=== PATIENT | female | born 1970 | race Caucasian/White ===

== ENCOUNTER 2022-09-01 13:40 | Outpatient (REF) | payer MEDICARE, OTHER, SELFPAY ==
--- NOTE | ~2022-09-01 | XR_ITS ---
EXAMINATION: XR LUMBOSACRAL SPINE CLINICAL INFORMATION: Low back pain COMPARISON: Previous x-ray December 2010 TECHNIQUE: Three views of the lumbosacral spine. FINDINGS: There is mild curvature of the lumbar spine to the left. Bone alignment is otherwise normal. No fracture or dislocation. Degenerative disc disease at L5-S1. Lower lumbar spine facet arthritis. Compared to December 2010 exam spinal stimulator has been removed. XR/XR lumbar spine 2-3V IMPRESSION: Mild scoliosis. Degenerative changes.
== END 2022-09-01 13:41 | disposition home or self-care (01) ==
LOC: HO.XRAY 13:40
PROVIDERS: PCP Internal Medicine; Visit Provider Internal Medicine
DX: M54.50 Low back pain, unspecified (principal)
CPT/HCPCS: 72100

== ENCOUNTER 2024-01-16 12:46 | Outpatient (REF) | payer MEDICARE, OTHER, SELFPAY ==
[2024-01-16 15:01] LABS: Alanine Aminotransferase 43 U/L (0-31); Albumin Level 4.6 g/dL (3.5-5.0); Alkaline Phosphatase 95 U/L (39-117); Aspartate Amino Transferase 25 U/L (5-31); Bilirubin Direct < 0.2 mg/dL (0.0-0.5); Bilirubin Total 0.2 mg/dL (0.0-1.0); Total Protein 8.4 g/dL (6.5-8.0)
[2024-01-17 08:08] LABS: HBS Num1 654.75 mIU/mL (0-7.99); HBc Num1 0.07 S/CO (0.00-0.79); HBsAGNum1 0.45 S/CO (0.00-0.99); HIV AB/AG Nonreactive (Nonreactive); HIV Num 1 0.04 S/CO (0.00-0.99); Hepatitis B Core Antibody Nonreactive (Nonreactive); Hepatitis B Surface Antigen Negative (Negative); ~HepC Num1 0.09 S/CO (0.00-0.79); ~Hepatitis B Surface Antibody REACTIVE (Nonreactive); ~Hepatitis C Antibody Nonreactive (Nonreactive)
[2024-01-17 08:12] LABS: Hepatitis A Antibody IgG REACTIVE (Nonreactive); ~Hepatitis A Antibody IgG 5.24 S/CO (0.00-0.99)
[2024-01-17 16:14] LABS: RPR Rapid Plasma Reagin NON-REACTIVE (NON-REACTIVE)
[2024-01-19 03:03] LABS: TS Negative Control Passed; TS Panel A 1; TS Panel B 0; TS Positive Control Passed; TSpotTB Negative (Negative)
== END 2024-01-16 12:47 | disposition home or self-care (01) ==
LOC: HO.CHCLDS 12:46
PROVIDERS: Visit Provider Emergency Medicine
DX: F11.20 Opioid dependence, uncomplicated (principal); K21.9 Gastro-esophageal reflux disease without esophagitis; E78.2 Mixed hyperlipidemia; R03.0 Elevated blood-pressure reading, without diagnosis of hypertension; Z11.59 Encounter for screening for other viral diseases; R53.81 Other malaise
CPT/HCPCS: 36415; 80076; 86481; 86592; 86704; 86706; 86708; 86803; 87340; 87389

== ENCOUNTER 2024-05-28 11:50 | Outpatient (REF) | payer MEDICARE, MEDICAID, SELFPAY ==
--- OUTSIDE RECORDS SUMMARY | 2024-05-28 13:21 | XMS_ITS | Encounter Summary ---
Author Organization [employer] Address [address] [facility] [address] [place] [address] Care Team Providers Care Tea Blender Name Role Phone Jeremias Maria MD Primary Care Prov ider Encounter Details Date Type Department Care Team (Latest Contact Info) Description 08/18/2020 Abstract [facility] CONVERSIONS Dental, Provider, DDS Social History Tobacco Use Types Packs/Day Years Used Date Smoking Tobacco: Never Assessed Comments Unknown Sex and Gender Information Value Date Recorded Sex Assigned at Female 02/14/2022 10:24 AM EDT Legal Sex Female 10:24 AM EDT Gender Identity Female 02/14/2022 10:24 AM EDT Sexual Orientation Lesbian or Martino 09/28/2022 10 :58 AM EDT documented as of this encounter Plan of Treatment Upcoming Encounters Date Type Department Care Team (Late st Contact Info) Description 07/02/2024 1:00 PM EDT Clinical Support [facility] MEDICINE [address] [place] [address] Hayley Gamez, RN documented as of this encounter Visit Diagnoses Not on filedocumented in this encounter Care Teams Tea Blender Relationship Specialty Start Date End Date Jeremias Maria MD [address] [place] [address] PCP - General Internal Medicine 09/15/19 documented as of this encounter
--- OUTSIDE RECORDS SUMMARY | 2024-05-28 13:21 | XMS_ITS | Encounter Summary ---
Author Organization [employer] Address [address] [facility] 7t [place] [address] Care Team Providers Care Photographer Model Name Role Phone Jeremias Maria MD Primary Care Prov ider Reason for Visit * Reason Onset Date Comments Other 11/16/2022 Encounter Details Date Type Department Care Team ([facility] Contact Info) Description 11/16/2022 Telephone [facility] MED & PEDS [address] [place], [place] [phone] Jeremias Maria MD [address] [place] [address] Other Social History Tobacco Use Types Packs/Day Years Used Date Smoking Tobacco: Every Day Cigarettes Smokeless Tobacco: Current Alcohol Use Standard Drinks/Week Comments Yes 1 (1 standard drink = 0.6 oz pur e alcohol) Depression Answer Date Recorded Patient Health Questionnaire-9 Score 0 08/22/2022 Depression Answer Date Recorded Patient Health Questionnaire-2 Score 0 08/22/2022 Comments Unknown Sex and Gender Information Value Date Recorded Sex Assigned at Female 02/14/2022 10:24 AM EDT Legal Sex Female 10:24 AM EDT Gender Identity Female 02/14/2022 10:24 AM EDT Sexual Orientation Lesbian or Martino 09/28/2022 10 :58 AM EDT documented as of this encounter Miscellaneous Notes * Telephone Encounter - Luanne Goldstein RN - 11/17/2022 2:29 PM EDT T/ C to pt. For below message, message states , we are sorry , your call did not go through. Please call later. Not able to LVM. * Telephone Encounter - Shonna Griffin - 11/16/2022 9:20 AM EDT Tc from patient requesting for PCP to have the actual film of x-ray to give her the results in teleappt on 11/17/22. documented in this encounter Plan of Treatment Upcoming Encounters Date Type Department Care Team (Late st Contact Info) Description 07/02/2024 1:00 PM EDT Clinical Support [facility] MEDICINE [address] [place] [id number] Hayley Gamez RN documented as of this encounter Visit Diagnoses Not on filedocumented in this encounter Additional Health Concerns Assessment Noted Time PHQ-9 Depression Total Score: 0 08/23/19 2:19 PM EDT documented as of this encounter Care Teams Photographer Model Relationship Specialty Start Date End Date Jeremias Maria MD [address] [place] [id number] PCP - General Internal Medicine 09/15/19 documented as of this encounter
--- OUTSIDE RECORDS SUMMARY | 2024-05-28 13:21 | XMS_ITS | Encounter Summary ---
Author Organization [employer] Address [address] [facility] [address] [place] [address] Care Team Providers Care Recovery Coach Name Role Phone Jeremias Maria MD Primary Care Prov ider Encounter Details Date Type Department Care Team (Latest Contact Info) Description 05/07/2024 Travel Social History Tobacco Use Types Packs/Day Years Used Date Smoking Tobacco: Every Day Cigarettes Smokeless Tobacco: Current Alcohol Use Standard Drinks/Week Comments Yes 1 (1 standard drink = 0.6 oz pur e alcohol) Depression Answer Date Recorded Patient Health Questionnaire-9 Score 5 03/31/2023 Patient Health Questionnaire-9 Score 5 03/31/2023 Last PHQ-9: Questionnaire Data Not on file 1 06/01/2022 Housing Stability Answer Date Recorded What is your housing situation today? I have desisabella draper 01/31/[address] you li ve. Do you have problems with any of the following? None of the above 01/31/2023 Food Insecurity Answer Date Recorded Within the past 12 months, y ou worried that your food would run out before you got money to buy more: Never True 01/31/2023 Within the past 12 months,th e food you bought just didn't last and you didn't have enough money to get more: Never True Transportation Answer Date Recorded In the past 12 months, has l ack of transportation kept you from medical appts, meetings, work or from getting things needed for daily living? No 01/31/2023 Utilities Answer Date Recorded In the past 12 months, has t he electric, gas, oil or water company threatened to shut off services in your home? No 01/31/2023 Depression Answer Date Recorded Patient Health Questionnaire-2 Score 0 03/31/2023 Comments Unknown Sex and Gender Information Value [...] Description 07/02/2024 1:00 PM EDT Clinical Support [facility] MEDICINE [address] [place] [id number] Hayley Gamez RN documented as of this encounter Visit Diagnoses Not on filedocumented in this encounter Additional Health Concerns Assessment Noted Time PHQ-9 Depression Total Score: 5 03/31/20 23 12:04 PM EST documented as of this encounter Care Teams Recovery Coach Relationship Specialty Start Date End Date Jeremias Maria MD [address] [place] [id number] PCP - General Internal Medicine 09/15/19 documented as of this encounter
--- OUTSIDE RECORDS SUMMARY | 2024-05-28 13:21 | XMS_ITS | Encounter Summary ---
Author Organization [employer] Address [address] [facility] [address] [place] [address] Care Team Providers Care Nipping Machine Operator Name Role Phone Jeremias Maria MD Primary Care Prov ider Encounter Details Date Type Department Care Team ([facility] Contact Info) Description 10/10/2022 Abstract [facility] MED & PEDS [address] [place], [place] [phone] Jeremias Maria MD [address] [place] [address] Social History Tobacco Use Types Packs/Day Years [...] or Martino 09/28/2022 10 :58 AM EDT COVID-19 Exposure Response Date Recorded In the last 10 days, have yo u been in contact with someone who was confirmed or suspected to have Coronavirus/COVID-19? No / Unsure 10/07/2022 9:02 AM EDT documented as of this encounter Plan of Treatment Upcoming Encounters Date Type Department Care Team ([facility] Contact Info) Description 07/02/2024 1:00 PM EDT Clinical Support [facility] MEDIC[facility] [address] [place] [address] Hayley Gamez RN documented as of this encounter Procedures Procedure Name Priority Date/Time Associated Diagnosis Comments MAMMOGRAPHY Routine 09/08/2022 12:14 PM EDT documented in this encounter Results * Mammography (09/08/2022 12:14 PM EDT) Mammogram Bi-rads 1 Anatomical Region Laterality Modality Other Narrative 09/08/2022 12:14 PM EDT Recommended routine annual screening ( [facility] ) us Historical Provider HEALTH MAINTENANCE Final Result documented in this encounter Visit Diagnoses Not on filedocumented in this encounter Additional Health Concerns Assessment Noted Time PHQ-9 Depression Total Score: 0 08/23/19 23 2:19 PM EDT documented as of this encounter Care Teams Nipping Machine Operator Relationship Specialty Start Date End Date Jeremias Maria MD [address] [place] [id number] PCP - General Internal Medicine 09/15/19 documented as of this encounter
--- OUTSIDE RECORDS SUMMARY | 2024-05-28 13:21 | XMS_ITS | Encounter Summary ---
Author Organization [employer] Address [address] [facility] [address] [place] [address] Care Team Providers Care Equipment Driver Name Role Phone Jeremias Maria MD Primary Care Prov ider Encounter Details Date Type Department Care Team (Latest Contact Info) Description 08/17/2018 Abstract [facility] CONVERSIONS Dental, Provider, DDS Social History Tobacco [...] Upcoming Encounters Date Type Department Care Team ( st Contact Info) Description 07/02/2024 1:00 PM EDT Clinical Support [facility] MEDICINE [address] [place] [address] Hayley Gamez, RN documented as of this encounter Visit Diagnoses Not on filedocumented in this encounter Care Teams Equipment Driver Relationship Specialty Start Date End Date Jeremias Maria MD [address] [place] [address] PCP - General Internal Medicine 09/15/19 documented as of this encounter
--- OUTSIDE RECORDS SUMMARY | 2024-05-28 13:21 | XMS_ITS | Clinical Summary ---
Author Organization [employer] Address [address] [place] [address] Care Team Providers Care Test Center Manager Name Role Phone Jeremias Maria MD Primary Care Prov ider Allergies Active Allergy Reactions Criticality Noted Date Comments Penicillins High 2022 Medications * This document contains information received from the source organization and may not represent a complete record from that organization. tiZANidine (Zanaflex) 2 MG tabletIndicati ons:Muscle spasm TAKE ONE TABLET BY MOUTH TWICE DAILY 60 tablet 3 04/25/19 23 Active ibuprofen 800 MG tablet Take 1 tablet by mouth in the morning and 1 tablet at noon and 1 tablet in the evening. 06/24/19 22 Active lidocaine (Xylocaine) 5 % ointment Apply topically at bed time. 07/10/19 21 Active naloxone (Narcan) 4 mg/0.1 mL nasal spray Administer 0.1 mL into affected nostril(s). 10/07/19 20 Active nicotine (Nicoderm, Step 2) 14 MG/24HR patch Place 1 patch on the skin at bed time. 03/09/20 21 Active nicotine (Nicoderm, Step 1) 21 MG/24HR patch Place 1 patch on the skin at bed time. 03/09/20 21 Active nicotine (Nicoderm, Step 3) 7 MG/24HR patch Place 1 patch on the skin at bed time. 03/09/20 21 Active Blood Pressure Monitor kit 1 Units in the morning. 1 kit 08/23/19 23 Active hydrOXYzine HCl (Atarax) 25 MG tablet Take 1 tablet (25 mg) by mouth if needed in the morning, at noon, and at bedtime for anxiety. 90 tablet 3 03/15/20 23 Active SUMAtriptan (Imitrex) 50 MG tablet TAKE 1 TABLET BY MOUTH AT ONSET OF MIGRAINE. MAY REPEAT ONCE AFTER 2 HOURS IF NEEDED, DO NOT EXCEED FOUR TABLETS IN 24 HOURS 8 tablet 3 03/23/20 23 Active IBU 800 MG tablet TAKE ONE TABLET THREE TIMES DAILY WITH FOOD NEEDED FOR PAIN 90 tablet 11 08/22/19 24 Active topiramate (Topamax) 100 MG tablet Take 1 tablet (100 mg) by mouth 2 times daily. 120 tablet 11 01/12/20 24 Active pantoprazole (ProtoNix) 40 MG EC tablet TAKE 1 TABLET BY MOUTH AT BEDTIME 90 tablet 04/26/19 25 Active Buprenorphine HCl-Naloxone HCl (Suboxone) 8-2 MG SL filmIndication s:Opioid type dependence, continuous (CMS/HCC) Place 1 Film under the tongue 3 times daily. 84 Film 1 04/30/19 25 025 Active Buprenorphine HCl-Naloxone HCl (Suboxone) 8-2 MG SL filmIndication s:Opioid type dependence, continuous (CMS/HCC) Place 1 Film under the tongue 3 times daily. Do not start before February 08, 2024. 84 Film 2 02/08/20 24 025 Discontinued(Re order (will not trigger notification to Pharmacy)) Active Problems Problem Noted Date Diagnosed Date Opioid dependence, uncomplicated 05/07/2024 Mild episode of recurrent major depressive disor eugenio 03/31/2023 Assessment & Plan (03/31/2023 4:10 PM EST): PROGRESS NOTE: ID: Thi is a 53 y.o. White lesbian or sharp-identified cis-female (pronouns she/her/hers) with previous documented hx of Depression and Anxiety. Hx of MH services including OP Psychotherapy, who presents for Depression and anxiety sxs. 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 She also reported that she has been having side effect on her motors skills after a surgery that was done by mistake 3 years ago. Currently dropping staff when she pick them up, constantly in pain for no reason as she reported. Has upcoming appt with a neurologist with the hope that it can be identified what's happening to her. During IBH Consult Thi presenting with changes in sleep difficulty staying asleep , trouble concentrating, fatigue/loss of energy and excessive worry/anxiety, difficulty controlling worry, restless/keyed up/On edge, irritability, and sleep disturbance difficulty staying asleep ; for a period of 18+ mo, for all symptoms in the context of family issues with siblings, been the main caregiver of her elderly mother. Struggling with motors skills and this frustrate her and concerns her. PLAN: New/Additional Services needed Off-site services for , Behavioral Health Integration Plan External OP therapy referral , Patient Self Plan Patient to utilize skills provided in intervention , Patient to reach out to [facility] team as needed, and Comply with medication Anxiety 03/16/2023 Assessment & Plan (04/20/2023 3:00 PM EST): No suicidal/homicidal ideas, controlled with hydroxyzine as needed, follow up . Assessment & Plan (03/16/2023 10:12 AM EST): Denied suicide/homicide ideas, refers since recent life stressors, her anxiety has increased, wants to see a therapist, will place consult, started on hydroxyzine to be taken as needed, side effects discussed, follow up in 1 month Effects of vibration 12/28/2022 Assessment & Plan (08/23/2023 7:33 PM EDT): Patient followed up with neurology but needs psych evaluation, consult previously placed and patient has been called as per chart documents, provided with phone number for her to call psychologist to make appointment. Patient left room after I was searching for another phone number to contact psychology. MA will call patient to provide her with another phone number to contact psychology. Assessment & Plan (06/20/2023 4:04 PM EST): Patient was seen by neurologist, will refer again to for psych evaluation as requested Assessment & Plan (12/28/2022 7:36 PM EDT): Patient refers that she got her lower back neurostimulator removed, after that she underwent a partial hysterectomy and ever since that procedure she has been having a feeling of vibration mostly on her upper body. Will refer to neurology for evaluation Elevated BP without diagnosis of hypertension Assessment & Plan (09/27/2022 12:34 PM EDT): Repeated was 142/92, patient has a bp monitor at home that does not use frequently, told to monitor daily, keep a bp log and follow up in 1 month, reinforced importamce of low sodium diet and exercise as tolerated Chronic midline low back pain without sciatica 0 09/27/2022 Assessment & Plan (11/28/2022 9:50 PM EDT): Discussed patient xray results, she want to see a back specialist will place referral. Assessment & Plan (09/27/2022 12:37 PM EDT): Xray performed, reviewed with patient xray report Mixed hyperlipidemia 09/08/2022 Assessment & Plan (09/08/2022 1:41 PM EDT): Elevated cholesterol/ldl, ascvd risk score >5%, discussed treatment options, she prefers to try diet/exercise and weight loss, will follow up in 4 months to repeat labs. Screening for colon cancer 08/22/2022 Encounter for screening mamm ogram for malignant neoplasm of breast 08/22/2022 Screening for cervical cancer 08/22/2022 Gastroesophageal reflux disease without esophagi tis 08/22/2022 Assessment & Plan (08/22/2022 3:37 PM EDT): Controlled on PPI, no changes will be made, reinforced lifestyle modifications Encounters Date Type Department Care Team Description 05/28/2024 11:15 AM EST Office Visit [facility] & PEDS [address] [place] [address] Jeremias Maria MD Other fatigue (Primary Dx); Anemia, unspecified type; Vitamin D deficiency; Elevated BP without diagnosis of hypertension; Obesity (BMI 30-39.9); Essential (primary) hypertension; Other feeding difficulties; Nail anomaly 05/28/2024 Travel 05/24/2024 Telephone [facility] [address] [place] [address] Jeremias Maria MD Nurse Triage 05/07/2024 1:15 PM EST Office Visit [facility] [address] [place] [address] João Diaz MD Opioid type dependence, continuous ([facility]/HCC) (Primary Dx); Opioid dependence, uncomplicated (CMS/HCC) 05/07/2024 Travel 04/29/2024 Refill [facility] [address] [place] [address] Hayley Gamez, MATTHEW Opioid type dependence, continuous ([facility]/HCC) 04/26/2024 Refill [facility] [address] [place], [place] [phone] Jeremias Maria MD from Last 3 Months Immunizations Name Administration Dates Next Due Hep A, Adult 11/05/2018,05/21/2018 Hep B, adult 11/05/2018,07/16/2018,05/21/2018 Influenza injectable quadriv alent IIV4 with preservative 05/24/2019,01/17/2018,03/27/2015 Influenza injectable quadriv alent preservative free 01/17/2022,05/10/2021,03/16/2020,02/08,05/10/2016 Influenza, IIV3, injectable 01/04/2013, 2 Pneumococcal Polysaccharide PPSV23 02/08/2017 Td (adult), unspecified 04/17/2005 Tdap 11/08/2016,11/02/2011,11/02/2011 Zoster, Recombinant 02/14/2023,12/13/2022 Social History Tobacco Use Types Packs/Day Years Used Date Smoking Tobacco: Every Day Cigarettes Smokeless Tobacco: Current Tobacco Cessation:Ready to Q uit: Not Asked; Counseling Given: Not Answered Alcohol Use Standard Drinks/Week Comments Yes 1 (1 standard drink = 0.6 oz pur e alcohol) Depression Answer Date Recorded Patient Health Questionnaire-9 Score 5 03/31/2023 Patient Health Questionnaire-9 Score 5 03/31/2023 Last PHQ-9: Questionnaire Data Not on file 1 06/01/2022 Housing Stability Answer Date Recorded What is your housing situation today? I have des draper 01/31/[address] you [...] 10:24 AM EDT Sexual Orientation Lesbian or Sharp 09/28/2022 10 :58 AM EDT Last Filed Vital Signs Vital Sign Reading Time Taken Comments Blood Pressure 123/77 05/28/2024 11:19 AM EST Pulse 82 05/28/2024 11:19 AM EST Temperature 36.4 ??C (97.6 ??F) 05/28/2024 11:[address] Respiratory Rate 20 05/28/2024 11:19 AM EST Oxygen Saturation 98% 05/28/2024 11:19 AM EST Inhaled Oxygen Concentration - - Weight 83.9 kg (185 lb) 05/28/2024 11:19 AM EST Height 157.5 cm (5' 2 ) 05/28/2024 11:19 AM EST Body Mass Index 33.84 05/28/2024 11:19 AM EST Plan of Treatment Upcoming Encounters Date Type Department Care Team (Late st Contact Info) Description 07/02/2024 1:00 PM EDT Clinical Support [address] [address] Enko, Hayley, RN Health Maintenance Due Date Last Done Comments CT Colonography 1970 Colonoscopy 1970 Colorectal Cancer Screening 1970 Dental X-Ray: Full Mouth 1970 FIT DNA/Cologuard 1970 FIT 1970 FOBT 1970 Sigmoidoscopy 1970 Alcohol/Substance Use Screening 1982 Pap Smear 1991 Cervical Cancer Screening 2000 HPV/Cotest 2000 Pneumococcal Vaccine: 50+ Years (2 of 2 - PCV) 02/08/2018 02/08/2017 Dental Oral Exam 01/15/2023 07/15/2022 Dental Prophylaxis 01/15/2023 07/15/2022 Dental X-Ray: Bitewings 07/17/2023 07/15/2022 SDOH Screening 08/23/2023 08/22/2022 Mammogram 09/09/2023 09/08/2022 COVID-19 Vaccine ( season) 2023 06/02/2021, 09/11/2020, 08/13/2020 Influenza Vaccine (#1) 2023 , 05/10/2021, 03/16/2020, Additional history exists Depression Screening 03/31/2024 03/31/2023, 03/31/20 23 Tobacco Screening 05/07/2025 05/07/2024 DTaP/Tdap/Td Vaccines (4 - Td or Tdap) 11/08/2026 11/08/2016, 11/02/2011, 11/02/2011, Additional history exists Lipid Panel 09/02/2027 09/01/2022, 10/13/2020 RSV Patients and Patients Aged 60 years or older (1 - 1-dose 75+ series) 2045 Hepatitis A Vaccines Aged Out 11/05/2018, 05/21/19 19 No longer eligible based on patient's age to complete this topic Hepatitis B Vaccines Completed 11/05/2018, 07/16/2018, 05/21/2018 Zoster Vaccines Completed 02/14/2023, 12/13/2022 HIV Screening Completed 01/16/2024, 09/01/2022 Hepatitis C Screening Completed 01/16/2024, 023 HIB Vaccines Aged Out No longer eligi ble based on patient's age to complete this topic HPV Vaccines Aged Out No longer eligi ble based on patient's age to complete this topic IPV Vaccines Aged Out No longer eligi ble based on patient's age to complete this topic Meningococcal Vaccine Aged Out No giovanni emiliano eligible based on patient's age to complete this topic RSV under 20 months Aged Out No longe r eligible based on patient's age to complete this topic Rotavirus Vaccines Aged Out No longer eligible based on patient's age to complete this topic Procedures Procedure Name Priority Date/Time Associated Diagnosis Comments POCT TRICE-14 URINE DRUG SCREEN Routine 05/07/2024 1:27 PM EST Opioid type dependence, continuous (CMS/HCC) HEPATITIS C AB W/REFL TO HCV RNA, QN, PCR Routine 01/16/2024 12:47 PM EDT Opioid type dependence, continuous (CMS/HCC) HIV 1/2 ANTIGEN/ANTIBODY, FOURTH GENERATION W/RFL Routine 01/16/2024 12:47 PM EDT Opioid type dependence, continuous (CMS/HCC) HM MAMMOGRAPHY Routine 09/08/2022 12:14 PM EDT LIPID PANEL, STANDARD Routine 09/01/2022 2:36 PM EDT Chronic midline low back pain without sciatica Class 1 obesity due to excess calories without serious comorbidity with body mass index (BMI) of 31.0 to 31.9 in adult PERIODIC ORAL EVALUATION - ESTABLISHED PATIENT Routine 07/15/2022 3:00 PM EDT PROPHYLAXIS - ADULT Routine 07/15/2022 1 :00 PM EDT BITEWINGS - 4 RADIOGRAPHIC IMAGES Routine 07/15/2022 1:00 PM EDT from Last 3 Months or Most Recently Relevant to Health Maintenance Results * POCT TRICE-14 Urine Drug Screen (05/07/2024 1:27 PM EST) THC Negative Cocaine Screen, Urine Negative Opiate Screen, Urine Negative Methamphetamine Screen Urine Negative Amphetamine Screen, Urine Negative Benzodiazepines Screen, Urine Negative Barbiturate Screen, Urine Negative Methadone Screen, Urine Negative Buprenophine Screen, Urine Positive TCA, Urine Negative MDMA Urine Negative ng/mL Oxycodone Screen, Urine Negative Phencyclidine (PCP), Urine Negative Propoxyphene, Urine Negative Fentanyl, Urine Negative Urine Urine specimen obtained by clean catch procedure / Unknown 05/07/2024 1:27 PM EST us João Diaz MD POINT OF CARE TEST ENTER/EDIT OR DERABLES Final Result * Hepatitis C Antibody with Reflex to HCV, RNA, Quantitative, Real-Time PCR (01/16/2024 12:47 PM EDT) Hepatitis C Antibody Nonreactive Nonreactive [facility] Comment:Antibodies to HCV no t detected; does not exclude early acuteHCV infection. Blood Venous blood specimen / Unknown 01/16/2024 12:47 PM EDT 01/16/2024 2:13 PM EDT us João Diaz MD LAB BLOOD ORDERABLES Final Resul t [facility] [address] [place] [phone] * HIV-1/2 Antigen and Antibodies, Fourth Generation, with Reflexes (01/16/2024 12:47 PM EDT) HIV AB/AG Nonreactive Nonreactive [facility] Comment:HIV-1 p24 Ag and/or HIV-1/HIV-2 Ab not detected.A test result that is nonreactive does not exclude thepossibility of exposure to or infection with HIV-1 and/orHIV-2. Nonreactive results in this assay for individualswith prior exposure to HIV-1 and/or HIV-2 may be due toantigen and antibody levels that are below the limit ofdetection of this assay.[email or web address] HIV Ag/Ab Combo assay result andsupplemental assay results should be interpreted inconjunction with the patient's clinical presentation,history and other laboratory results. If the results areinconsistent with clinical evidence, additional testing issuggested to confirm the result. Blood Venous blood specimen / Unknown 01/16/2024 12:47 PM EDT 01/16/2024 2:13 PM EDT João Diaz MD LAB BLOOD ORDERABLES Final Resul t [facility] [address] [place] [phone] [phone] * Hm Mammography (09/08/2022 12:14 PM EDT) Mammogram Bi-rads 1 Anatomical Region Laterality Modality Other Narrative 09/08/2022 12:14 PM EDT Recommended routine annual screening ( [facility] ) Tani Coreas MD HEALTH MAINTENANCE Final Result * (ABNORMAL) Lipid Panel, Standard (09/01/2022 2:36 PM EDT) Cholesterol, Total 200(H) <200 mg/dL [address] HDL Cholesterol 48(L) > OR = 50 mg/dL [address] Triglycerides 234(H) <150 mg/dL [address] Comment: If a non-fasting specimen was collected, consider repeat triglyceride testing on a fasting specimen if clinically indicated. Kim et al. J. of Clin. Lipidol. 2015;9:129-169. LDL Cholesterol 117(H) mg/dL (calc) [address] Comment: Reference range: <100 Desirable range <100 mg/dL for primary prevention; ?? <70 mg/dL for patients with CHD or diabetic patients with > or = 2 CHD risk factors. LDL-C is now calculated using the Jordan-Lam calculation, which is a validated novel method providing better accuracy than the Friedewald equation in the estimation of LDL-C. Jordan SS et al. MAGDA. 2013;310(19): 1574-1046 (http://education.Kongregate/faq/NAP517) Chol/HDLC Ratio 4.2 <5.0 (calc) [address] Non-HDL Cholesterol 152(H) <130 mg/dL (calc) [facility] Comment: For patients with diabetes plus 1 major ASCVD risk factor, treating to a non-HDL-C goal of <100 mg/dL (LDL-C of <70 mg/dL) is considered a therapeutic option. Blood Venous blood specimen / Unknown 09/01/2022 2:36 PM EDT 09/01/2022 2:37 PM EDT Jeremias Camacho MD LAB BLOOD ORDERABL ES Final Result [facility] [address] [place] [address] [employer] [place] [employer] [address] [place] [phone] from Last 3 Months or Most Recently Relevant to Health Maintenance [place] [phone] [facility] STANDARD DENTAL-[facility] MEDICAID STAND ADULT Care Teams Test Center Manager Relationship Specialty Start Date End Date Jeremias Maria MD [address] [place] [id number] PCP - General Internal Medicine 09/15/19
--- OUTSIDE RECORDS SUMMARY | 2024-05-28 13:21 | XMS_ITS | Encounter Summary ---
Author Organization [employer] Address [address] [facility] [address]t [place] [address] Care Team Providers Care Speech Therapy Teacher Name Role Phone Jeremias Maria MD Primary Care Prov ider Reason for Visit * Reason Onset Date Comments Nurse Triage 05/24/2024 Encounter Details Date Type Department Care Team ([facility] st Contact Info) Description 05/24/2024 Telephone [facility] [address] [place] [address] Jeremias Maria MD [address] [place] [address] Nurse Triage Social History Tobacco Use Types Packs/Day Years [...] encounter Miscellaneous Notes * Telephone Encounter - Lisa Hernández RN - 05/24/2024 12:27 PM EST Called pt. She states that she does not eat properly lately and has been feeling exhausted. Pt. Is vegetarian and has been using more pasta and air fryer for veggies lately and has been eating more carbs like cereal, rice and pasta. Pt. Also noticed her toenails are not looking as healthy as they used to look and pt. Feels she is lacking a Vitamin. Pt. Wants vitamin levels and whatever labs PCP may suggest. Protocol Used: Weakness (Generalized) and Fatigue (Adult) Protocol-Based Disposition: See in Office or Video Visit Today-appt. Scheduled for 05/27/24 at 1115am. With PCP in [place] Video visit offer not recorded Positive Triage Questions: * Patient wants to be seen * Fatigue (i.e., tires easily, decreased energy) and persists > 1 week * All higher-acuity triage questions were negative * Telephone Encounter - Henrique June - 05/24/2024 12:08 PM EST Symptom: Lethargic (Tired) Outcome: Schedule an urgent appointment (within 4 hours) or talk to a nurse or provider soon Reason: Getting worse The caller accepted this outcome. Pt states her diet is off and seeing differences in her energy and toe nails . documented in this encounter Plan of Treatment Upcoming Encounters Date Type Department Care Team (Late st Contact Info) Description 07/02/2024 1:00 PM EDT Clinical Support [facility] [address] [place] [phone] Hayley Gamez RN documented as of this encounter Visit Diagnoses Not on filedocumented in this encounter Additional Health Concerns Assessment Noted Time PHQ-9 Depression Total Score: 5 03/31/20 23 12:04 PM EST documented as of this encounter Care Teams Speech Therapy Teacher Relationship Specialty Start Date End Date Jeremias Maria MD [address] [place] [id number] PCP - General Internal Medicine 09/15/19 documented as of this encounter
--- OUTSIDE RECORDS SUMMARY | 2024-05-28 13:21 | XMS_ITS | Encounter Summary ---
Author Organization [email or web address] Address [address] [facility] [address] [place] [address] Care Team Providers Care Credit Control Clerk Name Role Phone Jeremias Maria MD Primary Care Prov ider Reason for Visit * Reason Comments Med Refill Encounter Details Date Type Department Care Team ([facility] st Contact Info) Description 10/24/2023 Refill [facility] [address] [place] [address] João Diaz MD [address] [place] [address] Opioid type dependence, continuous (CMS/HCC) Social History Tobacco Use Types Packs/Day Years [...] Description 07/02/2024 1:00 PM EDT Clinical Support [address] [address] Hayley Gamez RN documented as of this encounter Visit Diagnoses Diagnosis Opioid type dependence, continuous (CMS/HCC) Opioid type dependence, continuous documented in this encounter Additional Health Concerns Assessment Noted Time PHQ-9 Depression Total Score: 5 03/31/20 23 12:04 PM EST documented as of this encounter Care Teams Credit Control Clerk Relationship Specialty Start Date End Date Jeremias Maria MD [address] [place] [phone] PCP - General Internal Medicine 09/15/19 documented as of this encounter
--- OUTSIDE RECORDS SUMMARY | 2024-05-28 13:21 | XMS_ITS | Encounter Summary ---
Author Organization [employer] Address [address] [facility] [address] [place] [address] Care Team Providers Care Burnisher And Bumper Name Role Phone Jeremias Maria MD Primary Care Prov ider Reason for Visit * Reason Comments Med Refill Encounter Details Date Type Department Care Team (Late st Contact Info) Description 12/13/2023 Refill [facility] [address] [place] [address] João Diaz MD [address] [place] [address] Opioid dependence, uncomplicated (CMS/HCC) Social History Tobacco Use Types Packs/Day [...] Description 07/02/2024 1:00 PM EDT Clinical Support [address] [address] Hayley Gamez RN documented as of this encounter Visit Diagnoses Diagnosis Opioid dependence, uncomplicated (CMS/HCC) documented in this encounter Additional Health Concerns Assessment Noted Time PHQ-9 Depression Total Score: 5 03/31/20 23 12:04 PM EST documented as of this encounter Care Teams Burnisher And Bumper Relationship Specialty Start Date End Date Jeremias Maria MD [address] [place] [address] PCP - General Internal Medicine 09/15/19 documented as of this encounter
--- OUTSIDE RECORDS SUMMARY | 2024-05-28 13:21 | XMS_ITS | Encounter Summary ---
Author Organization [employer] Address [address] [facility] [address] [place] [address] Care Team Providers Care Laundry Or Dry Cleaners Counter Clerk Name Role Phone Jeremias Maria MD Primary Care Prov ider Reason for Visit * Reason Onset Date Comments Appointment Request 01/31/2023 Encounter Details Date Type Department Care Team ([facility] Contact Info) Description 01/31/2023 Telephone [facility] MED & PEDS [address] [place], [place] [phone] Jeremias Maria MD [address] [place] [address] Appointment Request Social History Tobacco Use Types Packs/Day Years Used Date Smoking Tobacco: Every Day Cigarettes Smokeless Tobacco: Current Alcohol Use Standard Drinks/Week Comments Yes 1 (1 standard drink = 0.6 oz pur e alcohol) Depression Answer Date Recorded Patient Health Questionnaire-9 Score 0 08/22/2022 Housing Stability Answer Date Recorded What is [...] encounter Miscellaneous Notes * Telephone Encounter - Charlene Rubin - 01/31/2023 9:32 AM EDT Tc from pt in regards to Neurology appt, pt is requesting a sooner appt. If any question contact pt. documented in this encounter Plan of Treatment Upcoming Encounters Date Type Department Care Team (Late st Contact Info) Description 07/02/2024 1:00 PM EDT Clinical Support [facility] MED[facility] [address] [place] [phone] Hayley Gamez RN documented as of this encounter Visit Diagnoses Not on filedocumented in this encounter Additional Health Concerns Assessment Noted Time PHQ-9 Depression Total Score: 0 08/23/19 23 2:19 PM EDT documented as of this encounter Care Teams Laundry Or Dry Cleaners Counter Clerk Relationship Specialty Start Date End Date Jeremias Maria MD [address] [place] [id number] PCP - General Internal Medicine 09/15/19 documented as of this encounter
--- OUTSIDE RECORDS SUMMARY | 2024-05-28 13:21 | XMS_ITS | Encounter Summary ---
Author Organization [employer] Address [address] [facility] 7t [place] [address] Care Team Providers Care Chief Cruiser Name Role Phone Jeremias Maria MD Primary Care Prov ider Reason for Referral * Consultation (Routine) - Pending Review Specialty Diagnoses / Procedures Referred By Contanu t Referred To Contact Podiatry Diagnoses Nail anomaly Jeremias Maria MD [address] [place] [address] Phone: tel: fax: Referral ID Status Reason Start Date Expiration Date Visits Requested Visits Authorized [id number] Pending Review Specialty Services Required 05/28/2024 05/28/2025 1 1 Encounter Details Date Type Department Care Team ([facility] st Contact Info) Description 05/28/2024 11:15 AM EST Office Visit [facility] MED & PEDS [address] [place] [address] Jeremias Maria MD [address] [place] [address] Other fatigue (Primary Dx); Anemia, unspecified type; Vitamin D deficiency; Elevated BP without diagnosis of hypertension; Obesity (BMI 30-39.9); Essential (primary) hypertension; Other feeding difficulties; Nail anomaly Social History Tobacco Use Types Packs/Day Years [...] AM EDT documented as of this encounter Last Filed Vital Signs Vital Sign Reading [...] Mass Index 33.84 05/28/2024 11:19 AM EST documented in this encounter Progress Notes * Anna Sanders MA - 05/28/2024 11:15 AM EST * Jeremias Camacho MD - 05/28/2024 11:15 AM EST Subjective Patient ID: Thi Bush is a 54 y.o. female who presents for No chief complaint on file.. Fatigue This is a chronic problem. Associated symptoms include fatigue. Pertinent negatives include no chills, congestion, coughing, joint swelling or myalgias. Review of Systems Constitutional: Positive for fatigue. Negative for chills. HENT: Negative for congestion. Respiratory: Negative for cough. Musculoskeletal: Negative for joint swelling and myalgias. Objective Physical Exam Constitutional: Appearance: Normal appearance. Cardiovascular: Rate and Rhythm: Normal rate and regular rhythm. Heart sounds: No murmur heard. Pulmonary: Effort: Pulmonary effort is normal. No respiratory distress. Breath sounds: No stridor. No rhonchi. Neurological: General: No focal deficit present. Mental Status: She is alert and oriented to person, place, and time. Psychiatric: Mood and Affect: Mood normal. Behavior: Behavior normal. Assessment/Plan Problem List Items Addressed This Visit Elevated BP without diagnosis of hypertension Relevant Orders Lipid Panel, Standard Zinc Other Visit Diagnoses Other fatigue - Primary Patient is vegetarian, will order blood work to evaluate for vitamin deficit Relevant Orders CBC auto differential Iron And Total Iron Binding Capacity Vitamin B12 (Cobalamin) and Folate Panel, Serum Vitamin D, 25-Hydroxy, Total, Immunoassay Comprehensive Metabolic Panel Lipid Panel, Standard TSH W/Reflex to FT4 Vitamin B6 Zinc Magnesium Phosphate (As Phosphorus) Anemia, unspecified type Relevant Orders Iron And Total Iron Binding Capacity Zinc Magnesium Phosphate (As Phosphorus) Vitamin D deficiency Relevant Orders Vitamin D, 25-Hydroxy, Total, Immunoassay Obesity (BMI 30-39.9) Essential (primary) hypertension Relevant Orders Lipid Panel, Standard Other feeding difficulties Relevant Orders Zinc documented in this encounter Plan of Treatment Upcoming Encounters Date Type Department Care Team (Late st Contact Info) Description 07/02/2024 1:00 PM EDT Clinical Support [facility] MEDICINE [address] [place] [phone] Hayley Gamez RN Scheduled Orders Name Type Priority Associated Diagnoses Orde r Schedule CBC auto differential Lab Routine Other fatigue Expected: 05/28/2024 (Approximate), Expires: 05/28/2025 Iron And Total Iron Binding Capacity Lab Routine Other fatigue Anemia, unspecified type Expected: 05/28/2024, Expires: 05/28/2025 Vitamin B12 (Cobalamin) and Folate Panel, Serum Lab Routine Other fatigue Expected: 05/28/2024 (Approximate), Expires: 05/28/2025 Vitamin D, 25-Hydroxy, Total, Immunoassay Lab Routine Other fatigue Vitamin D deficiency Expected: 05/28/2024 (Approximate), Expires: 05/28/2025 Comprehensive Metabolic Panel Lab Routine Other fatigue Expected: 05/28/2024 (Approximate), Expires: 05/28/2025 Lipid Panel, Standard Lab Routine Other fatigue Elevated BP without diagnosis of hypertension Essential (primary) hypertension Expected: 05/28/2024 (Approximate), Expires: 05/28/2025 TSH W/Reflex to FT4 Lab Routine Other fatigue Expected: 05/28/2024 (Approximate), Expires: 05/28/2025 Vitamin B6 Lab Routine Other fatigue Expected: 05/28/2024, Expires: 05/28/2025 Zinc Lab Routine Other fatigue Anemia, unspecified type Elevated BP without diagnosis of hypertension Other feeding difficulties Expected: 05/28/2024 (Approximate), Expires: 05/28/2025 Magnesium Lab Routine Other fatigue Anemia, unspecified type Expected: 05/28/2024, Expires: 05/28/2025 Phosphate (As Phosphorus) Lab Routine Other fatigue Anemia, unspecified type Expected: 05/28/2024, Expires: 05/28/2025 Scheduled Referrals Name Type Priority Associated Diagnoses Orde r Schedule Referral to Podiatry Outpatient Referral Routine Nail anomaly Expected: 05/28/2024 (Approximate), Expires: 05/28/2025 documented as of this encounter Visit Diagnoses Diagnosis Other fatigue- Primary Anemia, unspecified type Vitamin D deficiency Elevated BP without diagnosis of hypertension Obesity (BMI 30-39.9) Essential (primary) hypertension Unspecified essential hypertension Other feeding difficulties Nail anomaly documented in this encounter Additional Health Concerns Assessment Noted Time PHQ-9 Depression Total Score: 5 03/31/20 23 12:04 PM EST documented as of this encounter Care Teams Chief Cruiser Relationship Specialty Start Date End Date Jeremias Maria MD [address] [place] [address] PCP - General Internal Medicine 09/15/19 documented as of this encounter
--- OUTSIDE RECORDS SUMMARY | 2024-05-28 13:21 | XMS_ITS | Encounter Summary ---
Author Organization [employer] Address [address] [facility] [address] 7[address] [place] [address] Care Team Providers Care Reach Truck Operator Name Role Phone Jeremias Maria MD Primary Care Prov ider Reason for Visit * Reason Onset Date Comments Med Refill 04/29/2024 Encounter Details Date Type Department Care Team (Late st Contact Info) Description 04/29/2024 Refill [facility] MEDICINE [address] [place] [address] Hayley Gamez, MATTHEW Opioid type dependence, continuous (CMS/HCC) Social History [...] Description 07/02/2024 1:00 PM EDT Clinical Support [address] [address] Hayley Gamez RN documented as of this encounter Visit Diagnoses Diagnosis Opioid type dependence, continuous (CMS/HCC) Opioid type dependence, continuous documented in this encounter Additional Health Concerns Assessment Noted Time PHQ-9 Depression Total Score: 5 03/31/20 23 12:04 PM EST documented as of this encounter Care Teams Reach Truck Operator Relationship Specialty Start Date End Date Jeremias Maria MD [address] [place] [id number] PCP - General Internal Medicine 09/15/19 documented as of this encounter
--- OUTSIDE RECORDS SUMMARY | 2024-05-28 13:21 | XMS_ITS | Encounter Summary ---
Author Organization [employer] Address [address] [facility] 7t [place] [address] Care Team Providers Care Vp Business Development Name Role Phone Jeremias Maira MD Primary Care Prov ider Reason for Visit * Reason Onset Date Comments Referral 05/25/2023 Encounter Details Date Type Department Care Team ([facility] Contact Info) Description 05/25/2023 Telephone [facility] CHC MED & PEDS [address] [place], [place] [phone] Jeremias Maria MD [address] [place] [address] Referral Social History Tobacco Use Types Packs/Day Years [...] encounter Miscellaneous Notes * Telephone Encounter - Wing Cherelle RN - 07/03/2023 2:54 PM EDT Tc to pt regarding referral question. Unable to reach pt due to number provided, not being able to go through. Unable to leave message. * Telephone Encounter - Chinyere Wong - 07/03/2023 1:43 PM EDT Tc from pt requesting to speak with a nurse in regards to requested referral. Please contact pt at [phone] * Telephone Encounter - Grace Yan RN - 05/25/2023 3:35 PM EST Please review message below and advise on status of referral that was placed last month to the [facility]. * Telephone Encounter - Chinyere Wong - 05/25/2023 3:10 PM EST Tc from pt states she was advised by neurologist to requesting a referral for a psych evaluation inorder to visit the neurologist again. Please contact pt at [phone] documented in this encounter Plan of Treatment Upcoming Encounters Date Type Department Care Team (Late st Contact Info) Description 07/02/2024 1:00 PM EDT Clinical Support [facility] MEDICINE [address] [place] [phone] Hayley Gamez RN documented as of this encounter Visit Diagnoses Not on filedocumented in this encounter Additional Health Concerns Assessment Noted Time PHQ-9 Depression Total Score: 5 03/31/20 23 12:04 PM EST documented as of this encounter Care Teams Vp Business Development Relationship Specialty Start Date End Date Jeremias Maria MD [address] [place] [phone] PCP - General Internal Medicine 09/15/19 documented as of this encounter
--- OUTSIDE RECORDS SUMMARY | 2024-05-28 13:21 | XMS_ITS | Encounter Summary ---
Author Organization [employer] Address [address] [facility] 7t [place] [address] Care Team Providers Care Nanny/Household Manager Name Role Phone Jeremias Maria MD Primary Care Prov ider Reason for Visit * Reason Comments Med Refill Encounter Details Date Type Department Care Team ([facility] st Contact Info) Description 10/24/2023 Refill [facility] MEDICINE [address] [place] [address] João Diaz MD [address] [place] [address] Opioid type dependence, continuous (CMS/HCC) Social History [...] Description 07/02/2024 1:00 PM EDT Clinical Support [address] [address] Hayley Gamez RN documented as of this encounter Visit Diagnoses Diagnosis Opioid type dependence, continuous (CMS/HCC) Opioid type dependence, continuous documented in this encounter Additional Health Concerns Assessment Noted Time PHQ-9 Depression Total Score: 5 03/31/20 23 12:04 PM EST documented as of this encounter Care Teams Nanny/Household Manager Relationship Specialty Start Date End Date Jeremias Maria MD [address] [place] [address] PCP - General Internal Medicine 09/15/19 documented as of this encounter
--- OUTSIDE RECORDS SUMMARY | 2024-05-28 13:21 | XMS_ITS | Encounter Summary ---
Author Organization [employer] Address [address] [facility] [address] 7[address] [place] [address] Care Team Providers Care Senior Hydrogeologist Name Role Phone Jeremias Maria MD Primary Care Prov ider Encounter Details Date Type Department Care Team ([facility] st Contact Info) Description 03/13/2023 Abstract [facility] MEDICINE [address] [place], [place] [phone] Vee Fox Social History Tobacco Use Types Packs/Day Years [...] Description 07/02/2024 1:00 PM EDT Clinical Support [facility] MEDICINE [address] [place] [phone] Hayley Gamez RN documented as of this encounter Visit Diagnoses Not on filedocumented in this encounter Additional Health Concerns Assessment Noted Time PHQ-9 Depression Total Score: 0 08/23/19 23 2:19 PM EDT documented as of this encounter Care Teams Senior Hydrogeologist Relationship Specialty Start Date End Date Jeremias Maria MD [address] [place] [phone] PCP - General Internal Medicine 09/15/19 documented as of this encounter
--- OUTSIDE RECORDS SUMMARY | 2024-05-28 13:21 | XMS_ITS | Encounter Summary ---
Author Organization [employer] Address [address] [facility] [address] [place] [address] Care Team Providers Care Glass Decorator Name Role Phone Jeremias Maria MD Primary Care Prov ider Encounter Details Date Type Department Care Team (Latest Contact Info) Description 05/28/2024 Travel Social History Tobacco Use Types Packs/Day [...] Description 07/02/2024 1:00 PM EDT Clinical Support [facility] MEDICINE [address] [place] [phone] Hayley Gamez RN documented as of this encounter Visit Diagnoses Not on filedocumented in this encounter Additional Health Concerns Assessment Noted Time PHQ-9 Depression Total Score: 5 03/31/20 23 12:04 PM EST documented as of this encounter Care Teams Glass Decorator Relationship Specialty Start Date End Date Jeremias Maria MD [address] [place] [id number] PCP - General Internal Medicine 09/15/19 documented as of this encounter
--- OUTSIDE RECORDS SUMMARY | 2024-05-28 13:21 | XMS_ITS | Encounter Summary ---
Author Organization [employer] Address [address] [facility] 7t [place] [address] Care Team Providers Care Bleach Mixer Name Role Phone Jeremias Maria MD Primary Care Prov ider Encounter Details Date Type Department Care Team ([facility] Contact Info) Description 02/01/2024 Orders Only [facility] CHC MED & PEDS [address] [place], [place] [phone] Jeremias Maria MD [address] [place] [address] Social History Tobacco Use Types Packs/Day Years [...] Description 07/02/2024 1:00 PM EDT Clinical Support [address] [address] Hayley Gamez RN documented as of this encounter Visit Diagnoses Not on filedocumented in this encounter Additional Health Concerns Assessment Noted Time PHQ-9 Depression Total Score: 5 03/31/20 23 12:04 PM EST documented as of this encounter Care Teams Bleach Mixer Relationship Specialty Start Date End Date Jeremias Maria MD [address] [place] [id number] PCP - General Internal Medicine 09/15/19 documented as of this encounter
--- OUTSIDE RECORDS SUMMARY | 2024-05-28 13:21 | XMS_ITS | Encounter Summary ---
Author Organization [employer] Address [address] [facility] 7t [place] [address] Care Team Providers Care Health Program Director Name Role Phone Jeremias Maria MD Primary Care Prov ider Reason for Visit * Reason Comments OBAT Encounter Details Date Type Department Care Team (Latest Contact Info) Description 05/07/2024 1:15 PM EST Office Visit [facility] MEDICINE [address] [place], [place] [phone] João Diaz MD [address] [place] [address] Opioid type dependence, continuous (CMS/HCC) (Primary Dx); Opioid dependence, uncomplicated (CMS/HCC) Social History Tobacco [...] AM EDT documented as of this encounter Progress Notes * oJão Diaz MD - 05/07/2024 1:15 PM EST Subjective Patient ID: Thi Bush is a 54 y.o. female. HPI Patient presents for Opioid Dependence RV. Patient on Suboxone 24/6 mg daily with appointments on an 8-week schedule. Patient has been in the program for 8 years 7 months. Induction date: 09/23/2015. PCP: Dr. Britt 08/21/23 LFT: 09/01/22 Hep A and Hep B vaccines completed The following portions of the chart were reviewed this encounter and updated as appropriate: MassPAT reviewed UTOX: + bup No constipation. 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 She would like to buy a camper and travel and is asking how we could prescribed her Suboxone if sheis traveling across the country. Thi has no children. Vapes, is decreasing nicotine concentration. Rare EtOH. Had stimulator removed from back in past, and still has electric sensations , vibrations daily as if it were still in place. Had Neurology juaquin't with Dr. Marion, who advised her to have a psychiatric eval. Lumbar spine x-rays from 08/2022 ordered by PCP was read as no retained hardware. She saw [facility] Neurologist Dr. 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 States brain MRI was done, and was neg. He suggested seeing a specialized neurologist , but she has no other info. Visit note mentions Somatization Disorder with no mention of other neurologist. Declines speaking with instructional technology coach or clinician today. The following portions of the chart were reviewed this encounter and updated as appropriate: Tobacco Allergies Meds Problems Med Hx Surg Hx Fam Hx Review of Systems Constitutional: Negative for fever. Respiratory: Negative for shortness of breath. Cardiovascular: Negative for chest pain. Gastrointestinal: Negative for abdominal pain. Skin: Negative for rash. Neurological: Negative for headaches. Objective Physical Exam Vitals and nursing note reviewed. Constitutional: Appearance: Normal appearance. HENT: Head: Normocephalic and atraumatic. Nose: Nose normal. Eyes: Conjunctiva/sclera: Conjunctivae normal. Pupils: Pupils are equal, round, and reactive to light. Pulmonary: Effort: Pulmonary effort is normal. Skin: General: Skin is warm and dry. Neurological: Mental Status: She is alert. Gait: Gait is intact. Psychiatric: Mood and Affect: Mood and affect normal. Behavior: Behavior normal. Procedures Assessment/Plan Opioid dependence, uncomplicated (CMS/[facility]) Recovery support, harm reduction (including Narcan) and behavioral health attendance reviewed. Continue Suboxone 24/6 mg on 8 week schedule. Thi will let us know when she plans to take cross-country camper trip to coordinate Suboxone. She states her mother's home has to sold 1st. I called [facility] RN and they will call Dr. Lr's office for clarification of specialized neurologist for persistent spinal cord stimulator sx. documented in this encounter Plan of Treatment Upcoming Encounters Date Type Department Care Team (Late st Contact Info) Description 07/02/2024 1:00 PM EDT Clinical Support [address] [address] Hayley Gamez, MATTHEW documented as of this encounter Procedures Procedure Name Priority Date/Time Associated Diagnosis Comments POCT TRICE-14 URINE DRUG SCREEN Routine 05/07/2024 1:27 PM EST Opioid type dependence, continuous (CMS/HCC) documented in this encounter Results * POCT TRICE-14 Urine Drug Screen [...] procedure / Unknown 05/07/2024 1:27 PM EST João Diaz MD POINT OF CARE TEST ENTER/EDIT OR DERABLES Final Result documented in this encounter Visit Diagnoses Diagnosis Opioid type dependence, continuous (CMS/HCC)- Primary Opioid type dependence, continuous Opioid dependence, uncomplicated (CMS/HCC) documented in this encounter Additional Health Concerns Assessment Noted Time PHQ-9 Depression Total Score: 5 03/31/20 23 12:04 PM EST documented as of this encounter Care Teams Health Program Director Relationship Specialty Start Date End Date Jeremias Maria MD [address] [place] [phone] PCP - General Internal Medicine 09/15/19 documented as of this encounter
[2024-05-28 14:11] LABS: MANUAL DIFF FLAG NO
[2024-05-28 14:20] LABS: Basophils Percent Auto 0.4 % (0-2); Eosinophils Absolute Auto 0.1 X10*3/uL (0.0-0.4); Hematocrit 35.2 % (37.0-47.0); Hemoglobin 11.7 g/dl (12.0-16.0); Imm Gran Abs Auto 0.03 X10*3/uL (0.00-0.03); Imm Gran Pct Auto 0.4 % (0.0-0.4); Lymphocytes Absolute Auto 2.4 X10*3/uL (1.2-4.9); Lymphocytes Percent Auto 31.9 % (20-40); Mean Corpuscular HGB Conc 33.2 g/dl (31.0-35.0); Mean Corpuscular Hemoglobin 29.3 pg (27.0-33.0); Mean Corpuscular Volume 88.2 fL (80.0-98.0); Mean Platelet Volume 9.7 fL (9.4-12.3); Monocytes Absolute Auto 0.5 X10*3/uL (0.1-1.2); Monocytes Percent Auto 6.4 % (2-11); Neutrophils Absolute Auto 4.4 x10*3/uL (2.0-8.3); Neutrophils Percent Auto 59.9 % (45-73); Platelet Count 397 X10*3/uL (160-400); Red Blood Count 3.99 X10*6/uL (4.20-5.50); Red Cell Distribution Width 13.3 % (11.0-16.0); White Blood Count 7.4 X10*3/uL (4.8-10.8)
[2024-05-28 15:36] LABS: Alanine Aminotransferase 36 U/L (0-31); Albumin Level 4.3 g/dL (3.5-5.0); Anion Gap 12 (12-20); Aspartate Amino Transferase 24 U/L (5-31); Bilirubin Total 0.2 mg/dL (0.0-1.0); Blood Urea Nitrogen 16 mg/dL (9-16); Carbon Dioxide 22 mmol/L (22-29); Chloride 111 mmol/L (96-108); Cholesterol 185 mg/dL (<200); Estimated Glomerular Filt Rate > 60; Glucose Random 94 mg/dL (60-115); HDL Cholesterol 41 mg/dL (>40); Iron 68 mcg/dL (30-160); LDL Cholesterol Calculated 115 mg/dL (<100); Magnesium 2.2 mg/dL (1.6-2.6); Percent Iron Saturation 22 % (15-50); Phosphorus 2.9 mg/dL (2.7-4.5); Potassium 3.8 mmol/L (3.3-5.1); Sodium 141 mmol/L (135-145); TSH reflex Free T4 0.97 uIU/mL (0.32-4.0); Total Iron Binding Capacity 307 mcg/dL (228-428); Total Protein 8.1 g/dL (6.5-8.0); Triglycerides 147 mg/dL (<150); Unsaturated Iron Binding 239 ug/dL; Vitamin D 25-OH Total 49.8 ng/mL (>30)
[2024-05-28 15:45] LABS: Folate 15.7 ng/mL (> or = 4.0); Vitamin B12 692 pg/mL (200-900)
[2024-05-28 17:29] LABS: Alkaline Phosphatase 88 U/L (39-117)
[2024-06-01 02:09] LABS: Zinc 81 mcg/dL (60-130)
[2024-06-03 18:08] LABS: Vitamin B6 6.4 ng/mL (2.1-21.7)
== END 2024-05-28 11:51 | disposition home or self-care (01) ==
LOC: HO.CHCLDS 11:50
PROVIDERS: Visit Provider Internal Medicine
DX: R53.83 Other fatigue (principal); D64.9 Anemia, unspecified; R03.0 Elevated blood-pressure reading, without diagnosis of hypertension; R63.39 Other feeding difficulties; E55.9 Vitamin D deficiency, unspecified; I10 Essential (primary) hypertension
CPT/HCPCS: 36415; 80053; 80061; 82306; 82607; 82746; 83540; 83735; 84100; 84207; 84443; 84630; 85025